=== PATIENT | female | born 1995 | race Caucasian/White ===

== ENCOUNTER 2021-05-01 15:03 | Emergency (ER) | payer SELFPAY ==
[~2021-05-01] VITALS: Ht 157.5 cm; Wt 55.0 kg
[2021-05-01] MEDS ORDERED: ACETAMINOPHEN 325MG TABLET PO ONE (15:45)
[2021-05-01] MEDS ORDERED: ONDANSETRON HCL 4MG/2ML INJ IV ONE (15:45)
[2021-05-01] MEDS ORDERED: SODIUM CHLORIDE 0.9% 1,000 ML IV ONE (15:45)
[2021-05-01 16:04] LABS: BASOPHILS % 0.1 % (0.0-2.0); HEMATOCRIT. 42.5 % (36.0-48.0); HEMOGLOBIN. 15.2 g/dL (12.0-16.0); LYMPHOCYTES % 8.3 % (20.0-50.0); MEAN CORPUSCULAR HEMOGLOBIN 31.9 pg (28.0-32.0); MEAN CORPUSCULAR VOLUME 89.3 fL (81.0-99.0); MEAN PLATELET VOLUME 8.9 fl (7.4-10.4); MONOCYTES % 6.2 % (2.0-8.0); NEUTROPHILS % 85.4 % (40.0-76.0); PLATELET 233 x1000/uL (130-400); RED BLOOD CELL COUNT 4.76 mill/uL (4.2-5.4); RED CELL DISTRIBUTION WIDTH 11.9 % (11.6-14.6)
[2021-05-01 16:10] LABS: CHLORIDE 103 mEq/L (98-107)
[2021-05-01 16:21] LABS: B-HCG QUANTITATIVE < 1 mIU/mL (<3)
[2021-05-01] MEDS ORDERED: IBUPROFEN 800MG TABLET PO ONE (17:15)
[2021-05-01 17:29] LABS: CLARITY URINE TURBID (CLEAR); COLOR URINE YELLOW (YELLOW); KETONES URINE TRACE (NEGATIVE); LEUKOCYTE ESTERASE URINE 3+ (NEGATIVE); NITRITE URINE POSITIVE (NEGATIVE); OCCULT BLOOD URINE 2+ (NEGATIVE); PROTEIN URINE 2+ (NEGATIVE); SPECIFIC GRAVITY URINE 1.017 (1.005-1.030)
[2021-05-01] MEDS ORDERED: NITR-87 MT (18:12)
[2021-05-01] MEDS ORDERED: NITROFURANTOIN 100MG M/M CAPSULE PO ONE (18:15)
[2021-05-01 18:57] VITALS: BP 105/64
== END 2021-05-01 18:57 | disposition home or self-care (01) ==
LOC: ER 15:35
DX: N93.8 Other specified abnormal uterine and vaginal bleeding (principal); N39.0 Urinary tract infection, site not specified; N92.0 Excessive and frequent menstruation with regular cycle
CPT/HCPCS: 36415; 76830; 76856; 80053; 81003; 81025; 84702; 85025; 86850; 86900; 86901; 87077; 87086; 87186; 96361; 96374; 99284; J2405; J7030